=== PATIENT | female | born 1995 | race Caucasian/White ===

== ENCOUNTER 2018-08-19 16:42 | Emergency (ER) | payer OTHER ==
[2018-08-19] MEDS: ACETAMINOPHEN 325 MG TAB PO (18:46)
[2018-08-19 18:49] LABS: ADD MAN DIFF? NO
[2018-08-19 18:52] LABS: BASOPHIL # 0.1 10^3/ul (0.0-0.1); BASOPHILS % 0.6 % (0.0-2.0); EOSINOPHILS # 0.2 10^3/ul (0.0-0.5); EOSINOPHILS % 1.7 % (0.0-7.0); HEMATOCRIT 39.8 % (37.0-47.0); HEMOGLOBIN 12.6 g/dl (12.0-16.0); LYMPHOCYTES # 3.7 10^3/ul (0.8-2.9); LYMPHOCYTES % 32.5 % (18.0-55.0); MEAN CORPUSCULAR HEMOGLOBIN 27.1 pg (29.0-33.0); MEAN CORPUSCULAR HGB CONC 31.7 g/dl (32.0-37.0); MEAN CORPUSCULAR VOLUME 85.6 fl (72.0-104.0); MEAN PLATELET VOLUME 10.7 fl (7.4-10.4); MONOCYTE # 0.6 10^3/ul (0.3-0.9); MONOCYTES % 5.5 % (0.0-13.0); NEUTROPHIL # 6.8 10^3/ul (1.6-7.5); NEUTROPHILS % 59.4 % (30.0-74.0); PLATELET COUNT 338 10^3/UL (140-415); RED BLOOD COUNT 4.65 10^6/ul (4.20-5.40); RED CELL DISTRIBUTION WIDTH 13.7 % (11.5-14.5)
[2018-08-19 18:52] LABS: WHITE BLOOD COUNT 11.4 10^3/ul (4.8-10.8)
[2018-08-19 19:14] LABS: ANION GAP 11 (8-16); BLOOD UREA NITROGEN 8 mg/dl (7-20); CALCIUM 9.7 mg/dl (8.4-10.2); CARBON DIOXIDE 29 mmol/L (21-31); CHLORIDE 107 mmol/L (97-110); CREATININE 0.57 mg/dl (0.44-1.00); GLUCOSE 95 mg/dl (70-220); POTASSIUM 4.1 mmol/L (3.5-5.1); SODIUM 143 mmol/L (135-144)
[2018-08-19 19:21] LABS: ADD UMIC NO; UR ASCORBIC ACID NEGATIVE (NEGATIVE); UR BILIRUBIN (Dip) NEGATIVE (NEGATIVE); UR BLOOD (Dip) NEGATIVE (NEGATIVE); UR CLARITY CLEAR (CLEAR); UR COLOR YELLOW (YELLOW); UR GLUCOSE (Dip) NEGATIVE (NEGATIVE); UR KETONES (Dip) NEGATIVE (NEGATIVE); UR LEUKOCYTE ESTERASE (Dip) NEGATIVE Leu/ul (NEGATIVE); UR NITRITE (Dip) NEGATIVE (NEGATIVE); UR SPECIFIC GRAVITY (Dip) 1.012 (1.003-1.030); UR TOTAL PROTEIN (Dip) NEGATIVE (NEGATIVE); UR UROBILINOGEN (Dip) NEGATIVE (NEGATIVE)
== END 2018-08-19 20:22 | disposition home or self-care (01) ==
LOC: FTE 16:42
DX: R51 Headache (principal)
CPT/HCPCS: 36415; 70450; 76830; 76856; 80048; 81003; 81025; 85025; 99284-25

== ENCOUNTER 2019-03-17 03:29 | Emergency (ER) | payer SELFPAY, OTHER ==
[2019-03-17] MEDS: ONDANSETRON (ODT) 4 MG TAB ODT (04:57)
== END 2019-03-17 06:01 | disposition home or self-care (01) ==
LOC: FTE 06:01
DX: R11.2 Nausea with vomiting, unspecified (principal); F17.210 Nicotine dependence, cigarettes, uncomplicated
CPT/HCPCS: 81025; 99283

== ENCOUNTER 2019-05-01 01:18 | Emergency (ER) | payer SELFPAY | END 2019-05-01 06:41 | disposition left against medical advice (07) | LOC: FTE 01:18 | DX: Z53.21 Procedure and treatment not carried out due to patient leaving prior to being seen by health care provider (principal) ==